=== PATIENT | female | born 1955 | race Caucasian/White ===

== ENCOUNTER 2019-01-16 08:48 | Inpatient (IN) | payer OTHER ==
[~2019-01-16] VITALS: Ht 170.2 cm; Wt 63.0 kg
[2019-01-16 08:51] VITALS: BP 184/92
[2019-01-16 09:10] LABS: ABSOLUTE EOSINOPHILS 0.1 thou/uL (0.0-0.7); ABSOLUTE LYMPHOCYTES 2.6 thou/uL (0.8-5.3); ABSOLUTE MONOCYTES 0.5 thou/uL (0.0-1.2); ABSOLUTE NEUTROPHILS 5.2 thou/uL (1.6-8.1); BASOPHILS 0.5 %; HEMATOCRIT 41.8 % (37.0-47.0); HEMOGLOBIN 14.3 gm/dL (12.0-15.0); MCH 30.6 pg (26.0-34.0); MCHC 34.3 g/dL (28.0-37.0); MCV 89.1 fL (80.0-100.0); MONOCYTES 6.4 %; MPV 7.3 fl. (7.2-11.1); NUCLEATED RBCS 0 /100WBC; PLATELET COUNT* 363 thou/uL (150-400); POLYS 61.1 %; RBC 4.69 mil/uL (4.20-5.00); RDW-CV 13.5 % (10.5-14.5); WBC 8.4 thou/uL (4.0-11.0)
[2019-01-16 09:15] LABS: CALCIUM 8.9 mg/dL (8.5-10.1); CREATININE 0.7 mg/dL (0.6-1.3); POTASSIUM 3.7 mmol/L (3.5-5.1)
[2019-01-16 09:16] LABS: PROTIME 10.4 Seconds (9.20-11.50)
[2019-01-16 09:26] LABS: ALBUMIN 3.8 g/dL (3.4-5.0); TOTAL BILIRUBIN 0.3 mg/dL (<0.1-1.0); TOTAL PROTEIN 7.9 g/dL (6.4-8.2)
[2019-01-16 11:43] VITALS: BP 144/69
--- NOTE | 2019-01-16 11:45 | NUR ---
REPORT GIVEN TO EDWIGE RICHARDSON WHO IS TO ASSUME PT CARE INPATIENT NURSE.
[2019-01-16 13:00] VITALS: BP 141/85
[2019-01-16 16:05] VITALS: BP 140/74
--- NOTE | 2019-01-16 18:27 | NUR ---
PATIENT RESTING IN BED. VSS. DENIES CHEST PAIN. HEPARIN GTT INFUSING AT 744 U/HR PER PROTOCOL. HOURLY ROUNDING COMPLETED FOR [place] SAFETY.
[2019-01-16 19:30] VITALS: BP 170/80
--- NOTE | 2019-01-16 19:30 | NUR ---
RECEIVED REPORT AND ASSUMED CARE OF PT, ASSESSMENT COMPLETED. PT C/O UPPER ABD PAIN UP INTO LOWER CHEST. STATES SHE BELIEVES IT IS JUST ANXIETY. TELEMETRY ON SHOWING SR. REASSURANCE GIVEN. STAYING AT BEDSIDE. WILL CONT TO MONITOR AND ASSIST NEEDED.
[2019-01-16 23:06] LABS: GLYCOHEMOGLOBIN (HGB A1C) 5.6 % (4.8-5.6)
[2019-01-17] VITALS (9 sets, daily range): BP systolic 106–137; BP diastolic 53–71
[2019-01-17 04:39] LABS: HEMATOCRIT 41.1 % (37.0-47.0); HEMOGLOBIN 13.6 gm/dL (12.0-15.0); MCH 29.5 pg (26.0-34.0); MCHC 33.1 g/dL (28.0-37.0); MCV 89.1 fL (80.0-100.0); RBC 4.61 mil/uL (4.20-5.00); RDW-CV 14.1 % (10.5-14.5); WBC 7.4 thou/uL (4.0-11.0)
[2019-01-17 04:56] LABS: CHOLESTEROL 230 mg/dL (<200); HDL CHOLESTEROL 73 mg/dL (>40); LDL CHOLESTEROL 144 mg/dL (<100); TC:HDL 3.2 Ratio (Not establshd); TRIGLYCERIDE 66 mg/dL (<150); VLDL 13 mg/dL (<40)
[2019-01-17 05:20] LABS: SERUM ASSESSMENT CLEAR
[2019-01-17 05:33] LABS: ALBUMIN 3.4 g/dL (3.4-5.0); CALCIUM 9.1 mg/dL (8.5-10.1); CREATININE 0.7 mg/dL (0.6-1.3); POTASSIUM 4.4 mmol/L (3.5-5.1); TOTAL BILIRUBIN 0.5 mg/dL (<0.1-1.0); TOTAL PROTEIN 6.9 g/dL (6.4-8.2)
--- NOTE | 2019-01-17 06:41 | NUR ---
SLEPT WELL TONIGHT. NO FURTHER C/O ABD PAIN, GOYAL OR CHEST PAIN. TELEMETRY CONT TO SHOW SR. NPO SINCE CO FOR CARDIAC CATH TODAY. GAIT STEADY TO AND FROM BR INDEPENDENTLY. ASSESSMENT UNCHANGED. HS GOALS OF REST AND SAFETY ACHIEVED. HOURLY ROUNDING OBSERVED.
--- NOTE | 2019-01-17 09:11 | CON ---
[address] [address] CONSULTATION Name: MAXIMO LOPEZ Room: [address] IN .R.#: [id number] Admission: 01/16/19 Attend Phys: Zoe Kirby MD Discharge: Date of : 57 Report #: [id number] THIS REPORT FOR: //name// CC: [facility] physician/PCP Zoe Kirby INDICATION: Chest pain. HISTORY OF PRESENT ILLNESS: The patient is a 63-year-old white female with no prior cardiac history. She denies any history of hypertension, diabetes, dyslipidemia, or smoking. She does have a very strong family history of coronary artery disease. She has been having intermittent neck, chest discomfort, heart pounding and headache since yesterday evening. The patient had recurrence of symptoms this morning despite eating breakfast and presented to the Emergency Room for further evaluation. EKG shows sinus rhythm with diffuse ST segment depression suggesting ischemia. At the time of interview, she is pain free. PAST MEDICAL HISTORY: Tonsillectomy as a child. ALLERGIES: None. MEDICATIONS: None. FAMILY HISTORY: Parents, both had heart disease. Father had heart attacks in his 60s. Brother had stents placed in his 50s. Paternal uncles have had heart attacks. PHYSICAL EXAMINATION: VITAL SIGNS: Blood pressure presently 144/69, pulse 84 and regular. GENERAL: This is a pleasant lady in no distress. Mood and affect appropriate. HEENT: Extraocular muscles intact. Mucous membranes are moist. NECK: Shows no jugular venous distention. There are no carotid bruits. CHEST: Reveals clear lung longoria. CARDIOVASCULAR: Reveals a regular rhythm without gallop or murmur. ABDOMEN: Reveals normal bowel sounds. The abdomen is soft, nontender. EXTREMITIES: Shows no edema. Peripheral pulses 2+ and palpable. SKIN: Warm and dry. LABORATORY DATA: A 12-lead EKG shows sinus rhythm with ST segment depression diffusely. Labs are reviewed. Troponins are less than 0.06 on 2 separate occasions. Chest x-ray shows no acute cardiopulmonary abnormality. IMPRESSION AND RECOMMENDATIONS: [place] [address] CONSULTATION Name: MAXIMO LOPEZ Room: [address] IN [facility]#: [id number] Admission: 01/16/19 Attend Phys: Zoe Kirby MD Discharge: Date of : 57 Report #: [id number] 1. Chest pain with symptoms to suggest unstable angina. The patient's EKG further suggests ischemia. Would proceed with cardiac catheterization and angiography. Further intervention pending results of that study. Orders have been placed. We will start heparin drip in the interim. 2. Hypertension. The patient had been placed on lisinopril. I am adding metoprolol 25 mg twice daily. 3. Possible dyslipidemia. Check fasting lipid profile. <ELECTRONICALLY SIGNED> By: Ilia Villeda MD, [facility] 01/17/19 0911 1420 1946Ilia [facility]illeda MD, [facility] /nt
--- NOTE | 2019-01-17 12:08 | EKG ---
[place] [address] ELECTROCARDIOGRAM REPORT Name: MAXIMO LOPEZ Room: [address] ADM IN M.R.#: [id number] Admission: 01/16/19 Attend Phys: Zoe Kirby MD Discharge: Date of : 57 Report #: [id number] THIS REPORT FOR: //name// [facility] ED Test Date: 2019-01-16 Test Time: 08:55:58 Pat Name: MAXIMO LOPEZ Department: Room: [facility] Gender: F Director Nursing Service: : 1955 Requested By: Chandrika Romero Order Number: [id number] : Rik Damon Measurements Intervals [place] Rate: 101 P: 68 MI: 128 QRS: 55 QRSD: 97 T: 24 QT: 331 QTc: 429 Interpretive Statements Sinus tachycardia Borderline ST depression, diffuse leads; ischemia must be considered No previous ECG available for comparison Electronically Signed On 01-17-2019 12:08:14 ASSOCIATE JAVA DEVELOPER by Rik Damon [email or web address] <ELECTRONICALLY SIGNED> By: Rik Damon MD, [facility] 01/17/19 1208 0855 Rik Damon MD, [facility] /EPI
--- NOTE | 2019-01-17 12:11 | NUR ---
PT OFF UNIT TO DIRECTOR MARKET RESEARCH.
--- NOTE | 2019-01-17 13:50 | 2DMMODE ---
[place] [address] 2 D/M-MODE ECHOCARDIOGRAM Name: JESSICAMAXIMO A Room: [address] IN [facility]#: [id number] Admission: 01/16/19 Attend Phys: Zoe Kirby, Discharge: Date of : 57 Date of Service: 01/17/19 1350 Report #: [id number] THIS REPORT FOR: //name// APPROVED REPORT Study performed: 01/17/2019 10:21:14 EXAM: Comprehensive 2D, Doppler, and color-flow Echocardiogram Patient Location: In-Patient Room #: 200 Status: routine BSA: 1.72 HR: 65 bpm BP: 129/67 mmHg Rhythm: NSR Other Information Study Quality: Good Indications Chest Pain 2D Dimensions IVSd: 9.78 (7-11mm) LVOT Diam: 19.47 (18-24mm) LVDd: 42.25 mm PWd: 9.02 (7-11mm) Ascending Ao: 30.70 (22-36mm) LVDs: 23.22 (25-40mm) Aortic Root: 27.69 mm Volumes Left Atrial Volume (Systole) LA ESV Index: 19.40 mL/m2 Aortic Valve AoV Peak Carlos.: 1.30 m/s AO Peak Gr.: 6.71 mmHg LVOT Max P.00 mmHg AO Mean Gr.: 3.46 mmHg LVOT Mean P.98 mmHg LVOT Max V: 1.12 m/s AO V2 VTI: 23.25 cm LVOT Mean V: 0.63 m/s JESICA (VTI): 2.78 cm2 LVOT V1 VTI: 21.72 cm Mitral Valve E/A Ratio: 1.27 MV Decel. Time: 194.85 ms MV E Max Carlos.: 0.81 m/[place] [address] 2 D/M-MODE ECHOCARDIOGRAM Name: MAXIMO LOPEZ Room: [address] IN .R.#: [id number] Admission: 01/16/19 Attend Phys: Zoe Kirby, Discharge: Date of : 57 Date of Service: 01/17/19 1350 Report #: [id number] MV PHT: 56.51 ms MVA (PHT): 3.89 cm2 TDI E/Lateral E': 6.23 E/Medial E': 6.23 Medial E' Carlos.: 0.13 m/s Lateral E' Carlos.: 0.13 m/s Pulmonary Valve PV Peak Carlos.: 0.75 m/s PV Peak Gr.: 2.28 mmHg Tricuspid Valve RAP Estimate: 5.00 mmHg TR Peak Gr.: 19.94 mmHg RVSP: 25.00 mmHg PA Pressure: 25.00 mmHg Left Ventricle The left ventricle is normal size. There is normal LV segmental wall motion. There is normal left ventricular wall thickness. Left ventricular systolic function is normal. The left ventricular ejection fraction is within the normal range. LVEF is 60-65%. The left ventricular diastolic function is normal. Right Ventricle The right ventricle is normal size. The right ventricular systolic function is normal. Atria The left atrium size is normal. The right atrium size is normal. Aortic Valve The aortic valve is normal in structure. No aortic regurgitation is present. There is no aortic valvular stenosis. Mitral Valve The mitral valve is normal in structure. There is no mitral valve regurgitation noted. No evidence of mitral valve stenosis. Tricuspid Valve The tricuspid valve is normal in structure. Trace tricuspid regurgitation. No pulmonary hypertension. Pulmonic Valve The pulmonary valve is normal in structure. There is no pulmonic [place] [address] 2 D/M-MODE ECHOCARDIOGRAM Name: MAXIMO LOPEZ Room: [address] IN [facility]#: [id number] Admission: 01/16/19 Attend Phys: Zoe Kirby, Discharge: Date of : 57 Date of Service: 01/17/19 1350 Report #: [id number] Great Vessels The aortic root is normal in size. IVC is normal in size and collapses >50% with inspiration. Pericardium There is no pericardial effusion. <Conclusion> The left ventricle is normal size. There is normal left ventricular wall thickness. Left ventricular systolic function is normal. The left ventricular ejection fraction is within the normal range. LVEF is 60-65%. The left ventricular diastolic function is normal. The right ventricle is normal size. The left atrium size is normal. The aortic valve is normal in structure. The mitral valve is normal in structure. The tricuspid valve is normal in structure. IVC is normal in size and collapses >50% with inspiration. There is no pericardial effusion. There is normal LV segmental wall motion. <ELECTRONICALLY SIGNED> By: Rik Damon MD, FACC 01/17/19 1350 1350 1350 Rik Damon MD, FACC /INF
--- NOTE | 2019-01-17 14:13 | CARD ---
[address] [address] CARDIAC CATH REPORT Name: MAXIMO LOPEZ Room: [address] IN [facility]#: [id number] Admission: 01/16/19 Attend Phys: Zoe Kirby MD Discharge: Date of : 57 Report #: [id number] THIS REPORT FOR: //name// APPROVED REPORT Study performed: 01/17/2019 10:37:42 Patient Details Patient Status: Out-Patient Room #: The patient is a 63 year-old female Event Personnel Rik Damon Mutuel Teller, Zandra Nova RN Completion Supervisor, Good Hobbs Scrub, Tierney Lester RTR Monitor Procedures Performed Art Access - R femoral artery, Left Heart Cath w/or w/o Coronaries LHC, Hemostasis with Manual pressure Indication Abnormal ECG, Chest pain Risk Factors Hypercholesterolemia Admission/Lab Medications/Medications given during procedure Zofran (Ondansetron) IV 4 mg Procedure Narrative The patient was brought electively to the Cardiac Catheterization Laboratory and was prepped and draped in a sterile manner. The right femoral groin area was infiltrated with 2% Lidocaine subcutaneous anesthesia. A [place] 6 FR sheath was inserted into the right femoral artery. Coronary angiography was performed using coronary diagnostic catheters. The right coronary system was accessed and visualized with a 5F 3DRC catheter. The left coronary system was accessed and visualized with a 6F JL4 catheter. The left ventricle was accessed and visualized with a 6F Pigtail catheter. Left ventricular/Aortic Valve gradient assessed via catheter pullback. Left ventriculogram was performed in ZAMAN projection. Hemostasis was obtained with manual pressure following sheath removal without any complications. The patient tolerated the procedure well and there were no complications associated with the procedure. [place] [address] CARDIAC CATH REPORT Name: MAXIMO LOPEZ Room: [address] IN [facility]#: [id number] Admission: 01/16/19 Attend Phys: Zoe Kirby MD Discharge: Date of : 57 Report #: [id number] Intraoperative Conscious Sedation Sedation start time: 12:25 Case end Time: 13:25 Fentanyl 50 mcg Versed 2 mg Fluoro Time: 5.2 minutes Dose: DAP 78700 cGycm2 776 mGy Contrast Type and Amount: Visipaque 160 ml Coronary Angiography The patient's coronary anatomy is right dominant. Diagnostic Cath Left Main 0% narrowing LAD 0% narrowing Circumflex Nondominant vessel with 0% narrowing Right Coronary Dominant vessel with 0% narrowing Left Ventriculography The left ventricle is normal in size with normal contractility. The left ventricular ejection fraction is estimated to be 65%. Left ventricular wall motion abnormalities are not present. There is no mitral insufficiency. Hemodynamics The aortic pressure is 131/64 mmHg with a mean of 93 mmHg. The left ventricular pressure is 130/-1 mmHg with a mean of mmHg. The left ventricular end diastolic pressure is 4 mmHg. There was no gradient across the aortic valve upon pullback. Conclusion #1 normal coronary arteries #2 normal left-sided hemodynamics study #3 normal left ventricular systolic function, estimate ejection fraction being 65% Diagnostic Cath Approved by: Rik Damon MD Date/Time: 01/17/2019 14:13:08 <ELECTRONICALLY SIGNED> By: Rik Damon MD, FACC 01/17/19 1413 1413 1413Jokishan Damon MD, FACC /INF
--- NOTE | 2019-01-17 14:23 | NUR ---
Pt is A&O. Resides at home with . Independent and active. No DME. No hx of HH or SNF. Cardiology following. Goal is home at dc, no needs.
--- NOTE | 2019-01-17 15:31 | NUR ---
PT RETURN FROM WEIGHT YARDAGE CHECKER.
[2019-01-18] VITALS (7 sets, daily range): BP systolic 80–126; BP diastolic 38–65
--- NOTE | 2019-01-18 04:35 | NUR ---
ASSUMED CARE OF PT AFTER REPORT AT 1930. PT A&OX4. VSS. PHYSICAL ASSESSMENT COMPLETED AND CHARTED. PT ON RA. PT TRACING SR ON TELE. PT UPADLIB TO RESTROOM. PT POST CATH SITE TO RIGHT GROIN CLEAN, DRY & INTACT WITH MINIMAL OLD BLOOD ON THE DRESSING. MINOR BRUISING. NO HEMATOMA NOTED. PT COMPLAINED OF HEADACHE-MEDS GIVEN PER MAR. PT ABLE TO SLEEP WELL ON BED. CALL LIGHT WITHIN REACH.
[2019-01-18] MEDS ORDERED: LIPITOR20 MG PO (10:29)
[2019-01-18] MEDS ORDERED: ASA81BEC PO (10:32)
[2019-01-18] MEDS ORDERED: ACETAMINOPHEN325 MG PO (10:32)
[2019-01-18] MEDS ORDERED: ACID REDUCER20 MG PO (10:34)
[2019-01-18] MEDS ORDERED: LOPRESSOR50 MG PO (10:35)
[2019-01-18] MEDS ORDERED: DILTIAZEM 24HR180 M1 PO (12:25)
--- NOTE | 2019-01-18 17:29 | EKG ---
[place] [address] ELECTROCARDIOGRAM REPORT Name: MAXIMO LOPEZ Room: [address] DIS IN M.R.#: [id number] Admission: 01/16/19 Attend Phys: Zoe Kirby MD Discharge: 01/18/19 Date of : 57 Report #: [id number] THIS REPORT FOR: //name// [facility] Test Date: 2019-01-18 Test Time: 10:38:55 Pat Name: MAXIMO LOPEZ Department: Room: [address] Gender: F Garment Inspector: : 1955 Requested By: Ashlee Valenzuela Order Number: [id number] Omid MD: Ilia Villeda Measurements Intervals [place] Rate: 68 P: 53 TN: 127 QRS: 35 QRSD: 80 T: 39 QT: 388 QTc: 413 Interpretive Statements Sinus rhythm Borderline repolarization abnormality Compared to ECG 01/16/2019 08:55:58 Sinus tachycardia no longer present ST (T wave) deviation no longer present Possible ischemia no longer present Electronically Signed On 01-18-2019 17:29:17 CREDENTIALER by Ilia Villeda [email or web address] <ELECTRONICALLY SIGNED> By: Ilia Villeda MD, FACC 01/18/19 1729 1038 1038 Ilia Villeda MD, FAC /EPI
== END 2019-01-18 13:15 | disposition home or self-care (01) | DRG 287 ==
LOC: M.ERS 08:48 → M.2W 11:11 → M.TBA-ER 11:11 → M.2W 12:03
PROVIDERS: Personal Emergency Response Attendant; ADMIT Internal Medicine
PROC: 4A023N7 Measurement of Cardiac Sampling and Pressure, Left Heart, Percutaneous Approach (ICD-10-PCS; principal; 2019-01-17)
PROC: B211YZZ Fluoroscopy of Multiple Coronary Arteries using Other Contrast (ICD-10-PCS; principal; 2019-01-17)
PROC: B215YZZ Fluoroscopy of Left Heart using Other Contrast (ICD-10-PCS; principal; 2019-01-17)
DX: R07.9 Chest pain, unspecified (principal); I10 Essential (primary) hypertension; R73.9 Hyperglycemia, unspecified; Z82.49 Family history of ischemic heart disease and other diseases of the circulatory system; Z83.3 Family history of diabetes mellitus